=== PATIENT | female | born 1995 | race Caucasian/White ===

== ENCOUNTER 2021-06-23 13:15 | Outpatient (CLI) | payer OTHER | END 2021-06-23 13:35 | disposition home or self-care (01) | LOC: NST 13:15 | PROVIDERS: ATTEND Obstetrics & Gynecology | DX: Z34.83 Encounter for supervision of other normal pregnancy, third trimester (principal) ==

== ENCOUNTER 2021-07-07 10:02 | Inpatient (IN) | payer OTHER ==
[~2021-07-07] VITALS: Ht 152.4 cm; Wt 95.7 kg
[2021-07-08] MEDS ORDERED: SPRINTEC 28 DA1 EACH (08:29)
== END 2021-07-09 12:36 | disposition home or self-care (01) | DRG 807 ==
LOC: OB/GYN 10:02 → LDR 10:02 → OB/GYN 12:37
PROVIDERS: ADMIT Obstetrics & Gynecology; ATTEND Obstetrics & Gynecology
PROC: 10E0XZZ Delivery of Products of Conception, External Approach (ICD-10-PCS; principal; 2021-07-07)
PROC: 0UQG7ZZ Repair Vagina, Via Natural or Artificial Opening (ICD-10-PCS; 2021-07-07)
PROC: 4A1HXCZ Monitoring of Products of Conception, Cardiac Rate, External Approach (ICD-10-PCS; 2021-07-07)
PROC: 0W8NXZZ Division of Female Perineum, External Approach (ICD-10-PCS; 2021-07-07)
DX: O71.4 Obstetric high vaginal laceration alone (principal); Z37.0 Single live birth; Z3A.38 38 weeks gestation of pregnancy; Z20.822 Contact with and (suspected) exposure to COVID-19